=== PATIENT | male | born 1975 | race African-American/Black ===

== ENCOUNTER 2018-08-16 06:01 | Emergency (ER) | payer SELFPAY ==
[~2018-08-16] VITALS: Ht 177.8 cm; Wt 100.0 kg
[2018-08-16] MEDS ORDERED: EPINEPHRINE 0.1MG/ML (1:10,000) 10ML SYR ONE (06:02)
[2018-08-16] MEDS ORDERED: SODIUM BICARBONATE 8.4% MEQ/ML 50ML VIAL IV ONE (06:02)
[2018-08-16 06:30] VITALS: BP 0/0
== END 2018-08-16 10:00 | disposition expired ==
LOC: EDBD 06:01 → ER 06:01
DX: I46.9 Cardiac arrest, cause unspecified (principal)
CPT/HCPCS: 92950; 99285; J3490